=== PATIENT | female | born 1960 | race Native Hawaiian/Other Pacific Islander ===

== ENCOUNTER 2017-02-05 09:56 | Outpatient (CLI) | payer BC | END 2017-02-05 19:21 | disposition home or self-care (01) | LOC: RAD 09:56 | DX: Z12.31 Encounter for screening mammogram for malignant neoplasm of breast (principal); Z13.820 Encounter for screening for osteoporosis | CPT/HCPCS: G0202-TC ==

== ENCOUNTER 2017-08-13 08:28 | Outpatient (CLI) | payer BC | END 2017-08-13 19:03 | disposition home or self-care (01) | LOC: MRI 08:28 | DX: M54.5 Low back pain (principal) ==

== ENCOUNTER 2019-03-19 07:41 | Emergency (ER) | payer BC ==
[~2019-03-19] VITALS: Ht 154.9 cm; Wt 103.9 kg
[2019-03-19 08:25] LABS: PLATELET COUNT 276 K/uL (152-353)
[2019-03-19 08:39] LABS: POTASSIUM 3.6 mmol/L (3.6-5.2)
[2019-03-19 08:53] VITALS: TEMP 100
[2019-03-19 09:39] VITALS: BP 144/58
== END 2019-03-19 09:39 | disposition home or self-care (01) ==
LOC: ED 07:41
PROVIDERS: Emergency Medicine
DX: T81.49XA Infection following a procedure, other surgical site, initial encounter (principal); T85.79XA Infection and inflammatory reaction due to other internal prosthetic devices, implants and grafts, initial encounter; L03.312 Cellulitis of back [any part except buttock and flank]
CPT/HCPCS: 80053; 83605; 85027; 87040; 87070; 87205; 96365; 99284; J0696

== ENCOUNTER 2019-04-07 17:00 | Outpatient (CLI) | payer BC ==
[2019-04-07 17:20] LABS: PLATELET COUNT 349 K/uL (152-353)
[2019-04-07 18:13] LABS: POTASSIUM 3.6 mmol/L (3.6-5.2)
== END 2019-04-07 22:43 | disposition home or self-care (01) ==
LOC: LAB 17:00
PROVIDERS: Internal Medicine Infectious Disease
DX: Z79.899 Other long term (current) drug therapy (principal)
CPT/HCPCS: 80053; 82550; 85027; 85651; 86140

== ENCOUNTER 2019-04-14 16:18 | Outpatient (CLI) | payer BC ==
[2019-04-14 16:35] LABS: PLATELET COUNT 245 K/uL (152-353)
[2019-04-14 16:50] LABS: POTASSIUM 3.4 mmol/L (3.6-5.2)
== END 2019-04-14 21:42 | disposition home or self-care (01) ==
LOC: LAB 16:18
PROVIDERS: Internal Medicine Infectious Disease
DX: Z79.2 Long term (current) use of antibiotics (principal)
CPT/HCPCS: 80053; 82550; 85027; 85651; 86140

== ENCOUNTER 2019-04-21 10:29 | Outpatient (CLI) | payer BC ==
[2019-04-21 10:40] LABS: PLATELET COUNT 230 K/uL (152-353)
[2019-04-21 10:54] LABS: POTASSIUM 3.8 mmol/L (3.6-5.2)
== END 2019-04-22 05:49 | disposition home or self-care (01) ==
LOC: LAB 10:29
PROVIDERS: Internal Medicine Infectious Disease
DX: Z79.2 Long term (current) use of antibiotics (principal)
CPT/HCPCS: 80053; 82550; 85027; 85651; 86140

== ENCOUNTER 2019-04-28 10:09 | Outpatient (CLI) | payer BC ==
[2019-04-28 10:35] LABS: PLATELET COUNT 246 K/uL (152-353)
[2019-04-28 10:57] LABS: POTASSIUM 3.8 mmol/L (3.6-5.2)
== END 2019-04-28 23:20 | disposition home or self-care (01) ==
LOC: LAB 10:09
PROVIDERS: Internal Medicine Infectious Disease
DX: Z79.2 Long term (current) use of antibiotics (principal)
CPT/HCPCS: 36415; 80053; 82550; 85027; 85651; 86140

== ENCOUNTER 2019-05-05 10:46 | Outpatient (CLI) | payer BC ==
[2019-05-05 11:15] LABS: PLATELET COUNT 239 K/uL (152-353)
[2019-05-05 11:19] LABS: POTASSIUM 3.5 mmol/L (3.6-5.2)
== END 2019-05-05 20:38 | disposition home or self-care (01) ==
LOC: LAB 10:46
PROVIDERS: Internal Medicine Infectious Disease
DX: Z79.2 Long term (current) use of antibiotics (principal)
CPT/HCPCS: 80053; 82550; 85027; 85651; 86140

== ENCOUNTER 2019-05-12 10:12 | Outpatient (CLI) | payer BC ==
[2019-05-12 10:41] LABS: PLATELET COUNT 260 K/uL (152-353)
[2019-05-12 10:47] LABS: POTASSIUM 3.9 mmol/L (3.6-5.2)
== END 2019-05-12 16:00 | disposition home or self-care (01) ==
LOC: LAB 10:12
PROVIDERS: Internal Medicine Infectious Disease
DX: Z79.2 Long term (current) use of antibiotics (principal)
CPT/HCPCS: 80053; 82550; 85027; 85651; 86140

== ENCOUNTER 2021-07-19 08:39 | Outpatient (CLI) | payer OTHER | END 2021-07-19 20:03 | disposition home or self-care (01) | LOC: MAMMO 08:39 | PROVIDERS: ATTEND Nurse Practitioner Family | DX: Z13.820 Encounter for screening for osteoporosis (principal); Z12.31 Encounter for screening mammogram for malignant neoplasm of breast; N95.8 Other specified menopausal and perimenopausal disorders ==